=== PATIENT | male | born 1940 | race Caucasian/White ===

== ENCOUNTER → 2016-10-24 | Outpatient (CLI) | payer OTHER, BC ==
[~2016-10-24] MED LIST: ASPEC325 PO; CLOB-65 EXT; DESO0.0562 TD; FENO1TAB PO; HYDR-5688 PO; LISI10TA PO; MULTTAB58 PO; OXYSR10 PO; SNK PO
[2016-10-24 13:12] LABS: BASO % 0.7 %; BASO ABS # 0.04 K/uL (0-0.2); COMPLETE YES; EOS % 2.8 %; HEMATOCRIT 35.9 % (42-52); IG% 0.2 %; LYMPH % 43.1 %; LYMPH ABS # 2.45 K/uL (1.2-3.4); MEAN CORPUSCULAR HEMOGLOBIN 30.9 pg (25-34); MEAN CORPUSCULAR HGB CONC 32.9 g/dl (32-36); MEAN PLATELET VOLUME 12.1 fL (7.4-10.4); MONO % 10.9 %; NEUT % 42.3 %; PLATELET COUNT 231 K/uL (130-400); RED BLOOD COUNT 3.82 M/uL (4.7-6.1); WHITE BLOOD COUNT 5.68 K/uL (4.8-10.8)
[2016-10-24 13:24] LABS: CALCIUM 9.5 mg/dl (8.5-10.1)
[2016-10-24 13:33] LABS: ALT/SGPT 22 U/L (12-78); BLOOD UREA NITROGEN 25 mg/dl (7-18); BUN/CREATININE RATIO 18.9 (10-20); CARBON DIOXIDE 27 mmol/L (21-32); CHLORIDE 108 mmol/L (98-107); CHOLESTEROL 146 mg/dl (0-200); GLUCOSE 91 mg/dl (70-99); POTASSIUM 4.1 mmol/L (3.5-5.1); SODIUM 143 mmol/L (136-145); TRIGLYCERIDES 111 mg/dl (0-150); VERY LOW DENSITY LIPOPROT CALC 22 mg/dl
[2016-10-24 13:44] LABS: ALB/GLOB RATIO 1.5 (0.9-2); ALKALINE PHOSPHATASE 39 U/L (45-117); AST/SGOT 17 U/L (15-37); CHOLESTEROL/HDL RATIO 2.8; HDL CHOLESTEROL 53 mg/dl; LDL CHOLESTEROL CALCULATED 71 mg/dl
== END | disposition home or self-care (01) ==
LOC: C.LABMFLN 08:15
PROVIDERS: ATTEND Family Medicine
DX: I10 Essential (primary) hypertension (principal); E78.5 Hyperlipidemia, unspecified

== ENCOUNTER → 2016-10-27 | Outpatient (CLI) | payer OTHER, BC ==
[2016-10-27 13:49] LABS: FERRITIN 56.1 ng/ml (8.0-388.0)
--- NOTE | 2016-10-31 12:15 | CODING QUERY MEDICAL NECESSITY ---
SUPPORTING DIAGNOSIS NEEDED A supporting diagnosis is required for the test/procedure performed on this patient in order for us to be reimbursed by the patient's insurance. Please provide a supporting diagnosis for the following test/procedure listed below next to the test name along with your signature. *If there is no additional diagnosis for this patient that would support the following test/procedure please document that below next to the test/procedure. Test(s)/Procedure(s) that require a supporting diagnosis: DOS 10/27 * Vitamin B12 DIAGNOSIS: * Folic Acid DIAGNOSIS: Provider Signature: Date: Thank you Chayito Douglas [facility] Once completed, please kindly fax back to [phone] For questions please call [phone]
== END | disposition home or self-care (01) ==
LOC: C.LABMFLN 09:13
PROVIDERS: ATTEND Family Medicine
DX: D64.9 Anemia, unspecified (principal)

== ENCOUNTER → 2016-10-28 | Outpatient (CLI) | payer OTHER, BC | END | disposition home or self-care (01) | LOC: C.LABSPEC 10-27 13:13 | PROVIDERS: ATTEND Family Medicine | DX: D64.9 Anemia, unspecified (principal) ==

== ENCOUNTER → 2017-01-27 | Outpatient (CLI) | payer OTHER, BC ==
[2017-01-27 13:41] LABS: BASO % 0.8 %; BASO ABS # 0.05 K/uL (0-0.2); COMPLETE YES; EOS % 2.1 %; HEMATOCRIT 41.1 % (42-52); IG% 0.2 %; LYMPH % 41.8 %; LYMPH ABS # 2.64 K/uL (1.2-3.4); MEAN CELL VOLUME 93.2 fL (80-100); MEAN CORPUSCULAR HEMOGLOBIN 30.6 pg (25-34); MEAN CORPUSCULAR HGB CONC 32.8 g/dl (32-36); MEAN PLATELET VOLUME 11.9 fL (7.4-10.4); MONO % 10.6 %; NEUT % 44.5 %; PLATELET COUNT 267 K/uL (130-400); RED BLOOD COUNT 4.41 M/uL (4.7-6.1); WHITE BLOOD COUNT 6.31 K/uL (4.8-10.8)
[2017-01-27 14:23] LABS: THYROID STIMULATING HORMONE 3.64 uIu/ml (0.300-4.500)
== END | disposition home or self-care (01) ==
LOC: C.LABMFLN 09:28
PROVIDERS: ATTEND Family Medicine
DX: D64.9 Anemia, unspecified (principal)

== ENCOUNTER → 2017-10-13 | Outpatient (CLI) | payer OTHER, BC ==
[2017-10-13 13:11] LABS: HEMATOCRIT 40.7 % (42-52); HEMOGLOBIN 13.6 g/dL (14.0-18.0); MEAN CELL VOLUME 92.7 fL (80-100); MEAN CORPUSCULAR HGB CONC 33.4 g/dl (32-36); MEAN PLATELET VOLUME 11.9 fL (7.4-10.4); PLATELET COUNT 284 K/uL (130-400); RED CELL DISTRIBUTION WIDTH CV 12.7 % (11.5-14.5); RED CELL DISTRIBUTION WIDTH SD 43.2 fL (36.4-46.3); WHITE BLOOD COUNT 6.56 K/uL (4.8-10.8)
[2017-10-13 14:12] LABS: ALBUMIN 4.4 gm/dl (3.4-5.0); ALT/SGPT 27 U/L (12-78); AST/SGOT 19 U/L (15-37); BLOOD UREA NITROGEN 27 mg/dl (7-18); CALCIUM 9.4 mg/dl (8.5-10.1); CARBON DIOXIDE 27 mmol/L (21-32); CREATININE 1.24 mg/dl (0.60-1.40); GLUCOSE 93 mg/dl (70-99); POTASSIUM 4.2 mmol/L (3.5-5.1); SODIUM 137 mmol/L (136-145)
[2017-10-13 14:21] LABS: ALKALINE PHOSPHATASE 41 U/L (45-117); CHOLESTEROL 150 mg/dl (0-200); LDL CHOLESTEROL CALCULATED 68 mg/dl; TOTAL PROTEIN 7.7 gm/dl (6.4-8.2)
[2017-10-13 16:38] LABS: BASO % 0.6 %; BASO ABS # 0.04 K/uL (0-0.2); EOS % 1.4 %; EOS ABS # 0.09 K/uL (0-0.5); IG# 0.01 K/uL (0.00-0.02); LYMPH ABS # 3.28 K/uL (1.2-3.4); MONO ABS # 0.59 K/uL (0.11-0.59); NEUT % 38.8 %; NEUT ABS # 2.55 K/uL (1.4-6.5)
== END | disposition home or self-care (01) ==
LOC: C.LABMFLN 09:41
PROVIDERS: ATTEND Family Medicine
DX: I10 Essential (primary) hypertension (principal); E78.5 Hyperlipidemia, unspecified; E03.9 Hypothyroidism, unspecified